=== PATIENT | female | born 1930 | race Caucasian/White ===

== ENCOUNTER → 2017-02-17 | Outpatient (CLI) | payer MEDICARE, BC ==
[~2017-02-17] MED LIST: ALPR.25T PO; ASPI-860 PO; ATOR10TA PO; CRV6.25T; CRV6.25T PO; HCT25T PO; HYDR-3702 PO; HYDR-3754 PO; LEVO125T PO; LTN005OP2 OU; PARO10TA24 PO; VERA120T78; [UNRECOGNIZED DRUG - CODE] PO; [UNRECOGNIZED DRUG - OTHER]
--- NOTE | 2017-02-17 13:36 | Diagnostic Imaging Report ---
INDICATION: Postmenopausal, screening for osteoporosis. COMPARISON: 01/31/2015. DISCUSSION: Bone mineral density measurements of the lumbar spine and bilateral hips was performed on a [employer] DEXA scanner. Bone mineral density of the lumbar spine measures 1.198 g/cm2 which correlates to a T score of 0.0, normal. No statistically significant interval change in bone mineral density measurements of the lumbar spine. Bone mineral density of the right femoral neck measures 0.702 g/cm2 which correlates to a T score of -2.3, osteopenic. Bone mineral density of the right femoral neck measures 0.814 g/cm2 which correlates to a T score of -1.4, osteopenic. There is a moderate fracture risk. No statistically significant interval change. Exam is considered osteopenic by World Health Organization guidelines. Recommend initiation of treatment. Recommend one year followup DEXA scan. IMPRESSION: 1. Low bone mineral density within the bilateral hips in the osteopenic range with an associated increased fracture risk. 2. No statistically significant interval change in BMD measurements. Dictated by: Dictated on workstation # [id number]
--- NOTE | 2017-02-18 09:57 | Diagnostic Imaging Report ---
EXAMINATION: DIG JACQUELYN BILAT SCREEN W CAD. COMPARISON: 01/31/2015 and 08/24/2013. INDICATION: Screening mammography. TECHNIQUE: Digital screening mammography was obtained with a computer-aided detection (CAD) system. FINDINGS: The breasts are heterogeneously dense which may obscure small masses. There is an increasing number of benign monomorphic calcifications throughout both breasts. No suspicious clumped or grouped microcalcifications. No dominant mass or architectural distortion. IMPRESSION: No mammographic evidence of malignancy. Increasing benign calcifications in both breasts. A followup screening mammogram in 12 months is recommended. ACR BI-RADS Category 2: Benign findings. Result letter will be mailed to the patient. Note: At least 10% of breast cancer is not imaged by mammography. Dictated by: Dictated on workstation # [id number]
== END ==
LOC: RAD 09:56
PROVIDERS: ATTEND Internal Medicine
DX: Z12.31 Encounter for screening mammogram for malignant neoplasm of breast (principal); Z13.820 Encounter for screening for osteoporosis; M85.88 Other specified disorders of bone density and structure, other site
CPT/HCPCS: 77080; G0202